=== PATIENT | female | born 1970 | race Caucasian/White ===

== ENCOUNTER 2019-02-08 05:16 | Emergency (ER) | payer OTHER ==
[~2019-02-08] VITALS: Ht 154.9 cm; Wt 123.5 kg
[~2019-02-08 05:16] MED LIST: ONDA4TAB14 PO
[2019-02-08 05:26] VITALS: Ht 154.9 cm; Wt 123.5 kg
[2019-02-08] MEDS ORDERED: SOD CHLORIDE 0.9% 1,000 ML IV STA ×2 (06:05→08:15)
[2019-02-08] MEDS ORDERED: FAMOTIDINE 20 MG INJ IV STA (06:05)
[2019-02-08] MEDS ORDERED: morphine 4 MG/ML VIAL IV STA (06:05)
[2019-02-08] MEDS ORDERED: ONDANSETRON 4 MG INJ IV STA ×2 (06:05→08:15)
--- NOTE | 2019-02-08 06:27 | ERD ---
ER Documentation Chief Complaint Chief Complaint C/O EPIGASTRIC AP W/ ACTIVE VOMITING SINCE 0230 HPI This is a 48-year-old female with a remote history of colon carcinoma status post colectomy several years ago. The patient also had a pulmonary embolism at the onset of her colon carcinoma diagnosis. She is not on anticoagulants. 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 The patient indicates that at 1:30 AM roughly 5 hours prior to arrival she developed multiple episodes of nonbloody nonbilious emesis. 1 hour later she developed epigastric pain. She stated the pain was a sharp shooting pain. The pain became diffuse. She states it is 10 out of 10 in intensity. The pain did not radiate to her back. She had no frequency urgency or dysuria. She has no diarrhea. She denies any recent travel or prolonged immobilization. She has no shortness of breath at rest or exertion. The patient indicates she has had 10 episodes of nonbloody nonbilious emesis since the onset of her symptoms. She is been unable to tolerate oral intake since that time. The patient last ate at midnight roughly an hour and a half before symptoms. ROS All systems reviewed and are negative except as per history of present illness. Medications Home Meds Active Scripts Ondansetron (Ondansetron Odt) 4 Mg Tab.rapdis, 4 MG PO Q6H PRN for NAUSEA AND/OR VOMITING, #20 TAB Prov:JERAMY ESQUIVEL MD 02/08/19 Allergies Allergies: Coded Allergies: No Known Allergy (Unverified , 02/08/19) PMhx/Soc History of Surgery: Yes (COLON RESECTION, GALLBLADDER REMOVAL) Hx Neurological Disorder: No Hx Respiratory Disorders: No Hx Cardiac Disorders: No Hx Psychiatric Problems: No Hx Miscellaneous Medical Probl: Yes (COLON CA, "BLOOD CLOT IN LUNG") Hx Alcohol Use: Yes (OCCASIONALLY) Hx Substance Use: No Hx Tobacco Use: No Smoking Status: Never smoker Physical Exam Vitals Vital Signs Date Temp Pulse Resp B/P (MAP) Pulse Ox O2 O2 Flow FiO2 Time Delivery Rate 02/08/19 98.6 104 19 107/71 100 Room Air 08:39 (83) 02/08/19 100 19 124/78 100 Room Air 05:32 (93) 02/08/19 97.6 93 22 132/82 98 05:26 (99) Physical Exam Constitutional:Well-developed. Well-nourished. HEENT:Normocephalic. Atraumatic.Pupils were equal round reactive to light. Dry mucous membranes.No tonsillar exudates. Neck: No nuchal rigidity. No lymphadenopathy. No posterior cervical spine tenderness or step-offs. Respiratory: Not using accessory muscles of respiration.Lungs were clear to auscultation bilaterally. No rhonchi. No rales. No wheezing. Cardiovascular: Regular rate regular rhythm.No murmurs. No rubs were appreciat ed.S1, S2 normal. Distal pulses are palpable 2+ bilaterally. GI: Abdomen was soft. Epigastric tenderness. Non Distended. No pulsatile abdominal masses or bruits. No rebound. No guarding. Bowel sounds were hypoactive Muscle skeletal: Full range of motion of both the upper and lower extremities bilaterally.Normal muscle tone.No assymetrical calf tenderness or swelling. Skin: No petechia, no purpura. No lesions on the palms or the soles of the feet. No maculopapular rash. NEURO: Patient was alert, awake, orientated x3.No facial droop. Gait observed and normal with no ataxia.Speech had regular rate and rhythm. No focal neurological deficits. Result Diagram: 02/08/19 0545 02/08/19 0642 Results 24 hrs Laboratory Tests Test 02/08/19 05:45 02/08/19 06:42 02/08/19 06:44 White Blood Count 19.1 10^3/ul Red Blood Count 5.84 10^6/ul Hemoglobin 15.4 g/dl Hematocrit 48.2 % Mean Corpuscular Volume 82.5 fl Mean Corpuscular Hemoglobin 26.4 pg Mean Corpuscular 32.0 g/dl Hemoglobin Concent Red Cell Distribution Width 15.3 % Platelet Count 396 10^3/UL Mean Platelet Volume 10.7 fl Immature Granulocytes % 0.500 % Neutrophils % 88.6 % Lymphocytes % 7.0 % Monocytes % 3.3 % Eosinophils % 0.2 % Basophils % 0.4 % Nucleated Red Blood Cells % 0.0 /100WBC Immature Granulocytes # 0.090 10^3/ul Neutrophils # 17.0 10^3/ul Lymphocytes # 1.3 10^3/ul Monocytes # 0.6 10^3/ul Eosinophils # 0.0 10^3/ul Basophils # 0.1 10^3/ul Nucleated Red Blood Cells # 0.0 10^3/ul Serum HCG, Qualitative NEGATIVE Sodium Level 142 mmol/L Potassium Level 5.6 mmol/L Chloride Level 106 mmol/L Carbon Dioxide Level 22 mmol/L Anion Gap 14 Blood Urea Nitrogen 14 mg/dl Creatinine 0.74 mg/dl Est Glomerular Filtrat Rate mL/min > 60 mL/min Glucose Level 183 mg/dl Calcium Level 10.6 mg/dl Total Bilirubin 1.3 mg/dl Direct Bilirubin 0.00 mg/dl Indirect Bilirubin 1.3 mg/dl Aspartate Amino Transf (AST/SGOT) 79 IU/L Alanine < 6 IU/L Aminotransferase (ALT/SGPT) Alkaline Phosphatase 102 IU/L Troponin I < 0.012 ng/ml Total Protein 9.5 g/dl Albumin 5.4 g/dl Globulin 4.10 g/dl Albumin/Globulin Ratio 1.31 Amylase Level 92 U/L Lipase 86 U/L Prothrombin Time 12.1 Sec Prothrombin Time Ratio 0.9 INR International Normalized Ratio 0.89 Activated Partial Thromboplast 23.9 Sec Time Current Medications Medications Dose Sig/Daisy Start Time Status Last (Trade) Ordered Route PRN Stop Time Admin Dose Reason Admin Sodium 1,000 ml @ Q1H STAT 02/08/19 DC 02/08/19 Chloride 1,000 mls/hr IV 06:05 02/08/19 06:13 07:04 Morphine 4 mg ONCE STAT 02/08/19 DC 02/08/19 Sulfate IV 06:05 02/08/19 06:13 (morphine) 06:07 Ondansetron 4 mg ONCE STAT 02/08/19 DC 02/08/19 HCl (Zofran IV 06:05 02/08/19 06:13 Inj) 06:07 Famotidine 20 mg ONCE STAT 02/08/19 DC 02/08/19 (Pepcid Iv) IV 06:05 02/08/19 06:13 06:07 IV Flush 10 ml STK-MED 02/08/19 DC 02/08/19 (NS 10 ml) ONCE .ROUTE 07:10 02/08/19 07:28 07:11 Sodium 100 ml @ ud STK-MED 02/08/19 DC 02/08/19 Chloride ONCE .ROUTE 07:10 02/08/19 07:28 07:11 Iohexol 150 ml STK-MED 02/08/19 DC 02/08/19 (Omnipaque ONCE .ROUTE 07:10 02/08/19 07:28 300mg/ ml) 07:11 Sodium 1,000 ml @ Q1H STAT 02/08/19 02/08/19 Chloride 1,000 mls/hr IV 08:15 02/08/19 08:26 09:14 Ondansetron 4 mg ONCE STAT 02/08/19 DC 02/08/19 HCl (Zofran IV 08:15 02/08/19 08:27 Inj) 08:23 Ketorolac 30 mg ONCE STAT 02/08/19 DC 02/08/19 Tromethamine IV 08:15 02/08/19 08:27 (Toradol) 08:23 Dicyclomine 20 mg ONCE ONCE 02/08/19 DC 02/08/19 HCl PO 08:30 02/08/19 08:26 (Bentyl) 08:31 Procedures/MDM The patient presented to the emergency department with epigastric pain. My differential diagnosis included but was not limited to abdominal aortic aneurysm, choledocholithiasis, gallstone ileus, renal colic, pyelonephritis, pancreatitis, peptic ulcer disease, atypical myocardical infarction, mesenteric ischemia, GERD, pulmonary infarction. The patient was placed on a monitoring tech, continuous pulse oximetry and IV access was established by nursing staff. An EKG was obtained to rule out myocardial ischemia. There was no elevation of LFTs to suggest ductal obstruction, cholangitis, cholecystiitis or hepatitis. 12 Lead EKG tracing ordered and reviewed by myself showed: Sinus tachycardia 105 bpm and no arrhythmia. HI interval normal. QRS duration normal. No ST segment elevation No ST segment depression. No changes consistent with acute ischemia. The patient did have leukocytosis. However I felt this was secondary to a viral etiology. I did obtain a CT scan of the abdomen which was reviewed by the radiologist myself and indicate the followin. 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 2. Questionable mild fatty infiltration of the liver. 3. Moderate inferior ventral wall hernia contains loops of small bowel without evidence for obstruction. 4. Colonic diverticuli are noted without inflammatory change 5. Correlation with prior imaging is suggested if available to us assess stability of these findings. Follow-up chest CT may be helpful for complete evaluation of the presumed pericardial cyst if warranted I did indicate to the patient the findings of the CT scan regarding the pericardial cyst. I did feel this could be further evaluated on an outpatient basis. The patient was able to tolerate oral intake. Pain was controlled. The patient was discharged home in fair condition. They were instructed to return to the emergency department at any time if there was any worsening of their condition. The patient stated they would follow up with their PCP in the next 24-48 hours to initiate a suitable medication regimen under the care of their PCP as well as to allow their PCP to monitor any drug reactions. The patient was discharged home with prescriptions after they gave informed consent to the new medication. They were also fully informed by myself on the adverse effects and adverse drug interactions in order to provide adequate safeguards to prevent possible adverse reactions to medications. Departure Diagnosis: Primary Impression: Epigastric pain Additional Impression: Vomiting Vomiting type: unspecified Vomiting Intractability: non-intractable Nausea presence: with nausea Qualified Codes: R11.2 - Nausea with vomiting, unspecified Condition: Fair JERAMY ESQUIVEL MD Feb 08, 2019 06:27
[2019-02-08] MEDS ORDERED: IOHEXOL 300MG/ML 150 ML BTL ONE (07:10)
[2019-02-08] MEDS ORDERED: SOD CHLORIDE 0.9% 100 ML ONE (07:10)
[2019-02-08] MEDS ORDERED: KETOROLAC 30 MG INJ IV STA (08:15)
[2019-02-08] MEDS ORDERED: DICYCLOMINE 10 MG CAP PO ONE (08:30)
[2019-02-08 09:45] VITALS: BP 123/78; PULSE 111; RESP 19
== END 2019-02-08 09:49 | disposition home or self-care (01) ==
LOC: E/R 05:16
DX: R10.13 Epigastric pain (principal); R11.2 Nausea with vomiting, unspecified; Z85.038 Personal history of other malignant neoplasm of large intestine
CPT/HCPCS: 74177; 80053; 81001; 82150; 83690; 84484; 84703; 85025; 85610; 85730; 93005; 96361; 96374; 96375; 96376; 99285; J1885; J2270; J2405; J7030; Q9967